=== PATIENT | male | born 1990 | race African-American/Black ===

== ENCOUNTER 2021-11-29 12:46 | Emergency (ER) | payer OTHER ==
[2021-11-29 13:36] VITALS: BP 128/81; PULSE 93; TEMP 98; BMI 40.6
[2021-11-29] MEDS ORDERED: cefTRIAXone SODIUM 1 GM VIAL ONE (14:50)
[2021-11-29 15:26] LABS: EPI CELLS 7 /uL (0-25.1); HYALINE CASTS 1 /uL (0-3.1); URINE APPEARANCE CLEAR; URINE BACTERIA 7 /uL (0-1359); URINE BILIRUBIN NEGATIVE (NEGATIVE); URINE COLOR YELLOW; URINE GLUCOSE (UA) NEGATIVE (NEGATIVE); URINE KETONE NEGATIVE (NEGATIVE); URINE LEUK ESTERASE TRACE (NEGATIVE); URINE NITRITE NEGATIVE (NEGATIVE); URINE PROTEIN NEGATIVE (NEGATIVE); URINE RBC 2 /uL (0-23.9); URINE UROBILINOGEN 0.2 mg/dL (0.2-1.0); URINE WBC 34 /uL (0-25.8)
== END 2021-11-29 15:00 | disposition home or self-care (01) ==
LOC: JER 12:46
DX: Z20.2 Contact with and (suspected) exposure to infections with a predominantly sexual mode of transmission (principal)
CPT/HCPCS: 36415; 81003; 87491; 87591; 99285-25